=== PATIENT | female | born 1980 | race Caucasian/White ===

== ENCOUNTER 2016-07-06 22:01 | Emergency (ER) | payer OTHER ==
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
[2016-07-07 00:21] VITALS: BP 133/75
[2016-07-07] MEDS ORDERED: LIDOCAINE HCL 20 ML VIAL ONE (01:09)
[2016-07-07] MEDS ORDERED: DIPHTH,PERTUSS(ACELL),TET VAC 0.5 ML VIAL IM ONE ×2 (01:46→01:49)
== END 2016-07-07 02:04 | disposition home or self-care (01) ==
LOC: ER 22:01
PROC: 0JQP0ZZ Repair Left Lower Leg Subcutaneous Tissue and Fascia, Open Approach (ICD-10-PCS; principal; 2016-07-06)
DX: S81.812A Laceration without foreign body, left lower leg, initial encounter (principal); W22.8XXA Striking against or struck by other objects, initial encounter; Z23 Encounter for immunization; E11.9 Type 2 diabetes mellitus without complications; Z79.4 Long term (current) use of insulin; F32.9 Major depressive disorder, single episode, unspecified; I10 Essential (primary) hypertension

== ENCOUNTER 2016-11-30 01:24 | Emergency (ER) | payer OTHER ==
[2016-11-30] MEDS ORDERED: ACETAMINOPHEN 500 MG TABLET PO ONE (01:56)
[2016-11-30] MEDS ORDERED: LIDOCAINE HCL 20 ML VIAL ONE (01:58)
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
[2016-11-30 04:28] VITALS: BP 117/70
== END 2016-11-30 02:42 | disposition home or self-care (01) ==
LOC: ER 01:24
PROC: 08QNXZZ Repair Right Upper Eyelid, External Approach (ICD-10-PCS; principal; 2016-11-30)
DX: S01.111A Laceration without foreign body of right eyelid and periocular area, initial encounter (principal); W01.190A Fall on same level from slipping, tripping and stumbling with subsequent striking against furniture, initial encounter; Y93.9 Activity, unspecified; Y92.009 Unspecified place in unspecified non-institutional (private) residence as the place of occurrence of the external cause

== ENCOUNTER 2017-01-30 23:42 | Observation (INO) | payer OTHER ==
[2017-01-31] MEDS ORDERED: ASPIRIN 81 MG TAB.CHEW PO ONE (00:04)
[2017-01-31] MEDS ORDERED: ASPIRIN 81 MG TAB.CHEW ONE (00:05)
[2017-01-31] MEDS: NITROGLYCERIN 0.4 MG/TAB BTL SL PRN ×3 (00:08→00:18)
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
[2017-01-31 00:18] LABS: Hemoglobin 11.7 gm/dL (12.5-16.0); Mean Cell Volume 75.2 fl (78-100); Mean Corpuscular Hemoglobin 23.8 pg (27-31); Mean Corpuscular Hgb Conc 31.6 g/dl (32-36); Mean Platelet Volume 9.9 fl (6.0-9.5); Neutrophil # 4.9 K/mm3 (1.3-6.0); Neutrophil % 58.5 % (42-75.0); Platelet Count 379 K/mm3 (150-450); Red Blood Count 4.92 M/mm3 (4.2-5.4); Red Cell Distribution Width 13.7 % (11.5-14.0); White Blood Count 8.4 K/mm3 (4.0-10.5)
[2017-01-31 00:37] LABS: ALT 32 U/L (19-67); AST 16 U/L (0-48); Albumin * 3.6 gm/dl (3.4-5.0); Alkaline Phosphatase * 86 U/L (50-170); Anion Gap 18.3 mmol/L (6.8-13.8); BUN/Creatinine Ratio 13.2 (9.0-21.6); Bilirubin, Total 0.2 mg/dL (0.0-1.1); Blood Urea Nitrogen 15 mg/dL (3-23); Ca. Corrected For Albumin 8.1 mg/dL (8.4-10.2); Calcium * 8.1 mg/dL (7.9-10.9); Chloride 101 mmol/L (97-106); Glucose * 387 mg/dL (70-110); Potassium 4.3 mmol/L (3.4-4.6); Sodium 135 mmol/L (132-142); Total Protein 7.7 gm/dL (6.2-8.2); Troponin I Less than 0.017 ng/ml (0.00-0.10)
[2017-01-31] MEDS ORDERED: MAG HYDROX/ALUMINUM HYD/SIMETH 30 ML UDC PO ONE ×2 (02:03→11:18)
[2017-01-31] MEDS ORDERED: SUCRALFATE 1 G/10 ML UDC PO ONE (02:03)
[2017-01-31] MEDS ORDERED: LIDOCAINE HCL 20 ML UDC PO ONE ×2 (02:03→11:18)
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
[2017-01-31] MEDS ORDERED: LORazepam 1 MG TABLET PO PRN (07:35)
[2017-01-31] MEDS ORDERED: DULoxetine HCL 30 MG CAPSULE.SA PO SCH (07:35)
[2017-01-31] MEDS ORDERED: PANTOPRAZOLE SODIUM 40 MG TABLET.EC PO SCH (08:00)
[2017-01-31] MEDS: INSULIN LISPRO 100 UNITS/ML VIAL SC SCH ×2 (08:41→11:22)
[2017-01-31] MEDS ORDERED: PREGABALIN 75 MG CAPSULE PO SCH (09:00)
[2017-01-31] MEDS ORDERED: INSULIN LISPRO 100 UNITS/ML VIAL SC SCH (11:00)
[2017-01-31 11:12] VITALS: BP 154/94
[2017-01-31] MEDS ORDERED: BELLADONNA ALKALOIDS/PHENOBARB 60 ML BTL PO ONE ×2 (11:18→12:30)
[2017-01-31] MEDS ORDERED: LORazepam 2 MG/ML DISP.SYRIN IV SCH (11:30)
--- NOTE | 2017-01-31 12:34 | DS ---
(1) Chest pain Problem: Acute Qualifiers: Chest pain type: unspecified Qualified Code(s): R07.9 - Chest pain, unspecified (2) Diabetes type 2, uncontrolled Problem: Chronic Qualifiers: Diabetes mellitus complication status: with ophthalmic complications Diabetes mellitus complication detail: with diabetic retinopathy Diabetic retinopathy severity: with mild nonproliferative retinopathy Diabetes mellitus macular edema: macular edema presence unspecified Diabetes mellitus half-way insulin use: with half-way use (3) Diabetic ulcer of both lower extremities Problem: Chronic (4) GERD (gastroesophageal reflux disease) Problem: Chronic (5) HTN (hypertension) Problem: Chronic Qualifiers: Hypertension type: essential hypertension Qualified Code(s): I10 - Essential (primary) hypertension Description of Stay: Date of Admission: 01/31/17 Date of Discharge: 01/31/17 Description of Stay: Patient presented to the ER with c/o left side chest pain that radiated to the left arm, with dyspnea. pain was relieved with 3 SL ntg and ASA in the ER. risk factors for CAD include HTN and poorly controlled DM. patient was admitted for cp of unknown origin. After admission, patient had several troponins that were negative, including several EKGs that showed no acute changes. Chest pain was felt to be secondary to anxiety and/or GI in nature. Patient was recommended to follow up with her GI physician and pcp. Recommended that patient have a stress test in the outpatient setting. No changes to patient's home medications. Procedures Performed: none Discharge Disposition: Home self care Disposition: Home self-care Condition: Undetermined Discharge Activity: Activity as tolerated Discharge Diet: Consistent carbs Referrals: Sima Herrera ARNP [Primary Care Provider] - Problem Oriented Discharge Instructions to Patient/Family: Chest Pain Observation Additional Patient Instructions (free text): Follow up with Dr. Herrera on 02/09/17 at 10:00am. Call your GI doctor and notify him of your admission and ask for any recommendations. Be sure to ask primary care physician about a possible outpatient stress test in the future. No changes in medications. Complete Home Medications List: Complete Home Medication List: Cyclobenzaprine HCl 10 mg PO TID PRN 02/14/16 Blood Sugar DiagnosticNicky [Accu-Chek Compact Plus Strips] 1 each MC QID 02/18 LORazepam [Ativan] 1 mg PO TID PRN 02/19/16 Zolpidem Tartrate 10 mg PO HS 03/30/16 Dexlansoprazole [Dexilant] 60 mg PO HS 07/06/16 Duloxetine HCl [Cymbalta] 90 mg PO DAILY PRN 07/06/16 Insulin Degludec [Tresiba Flextouch U-100] 90 unit SQ HS 11/30/16 Insulin Lispro [Humalog] 25 units SC AC 11/30/16 Pregabalin [Lyrica] 150 mg PO DAILY 01/31/17 Ranitidine HCl 300 mg PO HS 01/31/17 metFORMIN HCL [Glucophage] 1,000 mg PO BID 01/31/17
[2017-01-31] MEDS ORDERED: LIDOCAINE HCL 20 ML UDC PO SCH (13:00)
[2017-01-31] MEDS ORDERED: MAG HYDROX/ALUMINUM HYD/SIMETH 30 ML UDC PO SCH (13:00)
[2017-01-31] MEDS ORDERED: BELLADONNA ALKALOIDS/PHENOBARB 60 ML BTL PO SCH (13:00)
[2017-01-31] MEDS ORDERED: FAMOTIDINE 20 MG TABLET PO SCH (21:00)
[2017-01-31] MEDS ORDERED: INSULIN DEGLUDEC SQ SCH (21:00)
[2017-01-31] MEDS ORDERED: ZOLPIDEM TARTRATE 10 MG TABLET PO SCH (21:00)
== END 2017-01-31 14:00 | disposition home or self-care (01) ==
LOC: ER 23:42 → MS 01-31 02:11
PROVIDERS: ADMIT Nurse Practitioner; ATTEND Internal Medicine
DX: R07.89 Other chest pain (principal); E11.622 Type 2 diabetes mellitus with other skin ulcer; E11.65 Type 2 diabetes mellitus with hyperglycemia; L97.319 Non-pressure chronic ulcer of right ankle with unspecified severity; E78.5 Hyperlipidemia, unspecified; M79.7 Fibromyalgia; K21.9 Gastro-esophageal reflux disease without esophagitis; Z79.4 Long term (current) use of insulin; F41.8 Other specified anxiety disorders
CPT/HCPCS: 36415; 71020; 80053; 82553; 84484; 84703; 85025; 85379; 87081; 93005; 96372; 96374; 99283; G0378

== ENCOUNTER 2017-04-15 15:24 | Observation (INO) | payer OTHER ==
[2017-04-15] MEDS ORDERED: KETOROLAC TROMETHAMINE 60 MG/2 ML VIAL IM ONE ×2 (16:03→16:27)
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
[2017-04-15 16:23] LABS: Hematocrit 30.6 % (37.0-47.0); Hemoglobin 9.4 gm/dL (12.5-16.0); Mean Cell Volume 74.8 fl (78-100); Mean Corpuscular Hgb Conc 30.7 g/dl (32-36); Mean Platelet Volume 10.2 fl (6.0-9.5); Neutrophil # 5.7 K/mm3 (1.3-6.0); Neutrophil % 71.3 % (42-75.0); Platelet Count 268 K/mm3 (150-450); Red Blood Count 4.09 M/mm3 (4.2-5.4); Red Cell Distribution Width 14.8 % (11.5-14.0)
[2017-04-15 16:43] LABS: ALT 40 U/L (19-67); AST 26 U/L (0-48); Albumin * 3.2 gm/dl (3.4-5.0); Alkaline Phosphatase * 128 U/L (50-170); Anion Gap 16.8 mmol/L (6.8-13.8); BUN/Creatinine Ratio 14.3 (9.0-21.6); Bilirubin, Total 0.2 mg/dL (0.0-1.1); Blood Urea Nitrogen 14 mg/dL (3-23); Ca. Corrected For Albumin 8.1 mg/dL (8.4-10.2); Calcium * 7.8 mg/dL (7.9-10.9); Carbon Dioxide 22.4 mmol/L (24-32.6); Chloride 104 mmol/L (97-106); Potassium 4.2 mmol/L (3.4-4.6); Sodium 139 mmol/L (132-142); Total Protein 7.1 gm/dL (6.2-8.2); Troponin I Less than 0.017 ng/ml (0.00-0.10)
[2017-04-15 16:48] LABS: Glucose * 515 mg/dL (70-110)
[2017-04-15] MEDS ORDERED: INSULIN LISPRO 100 UNITS/ML VIAL SC ONE (16:51)
[2017-04-15 17:09] LABS: BNP * 600 pg/mL (5-150)
[2017-04-15] MEDS ORDERED: INSULIN LISPRO 100 UNITS/ML VIAL ONE (17:22)
[2017-04-15] MEDS ORDERED: FUROSEMIDE 10 MG/ML VIAL IV ONE (18:58)
[2017-04-15] MEDS ORDERED: FUROSEMIDE 10 MG/ML VIAL ONE (19:01)
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
[2017-04-15] MEDS ORDERED: LORazepam 1 MG TABLET PO PRN (21:13)
[2017-04-15] MEDS ORDERED: DULoxetine HCL 30 MG CAPSULE.SA PO PRN (21:13)
[2017-04-15] MEDS ORDERED: CYCLOBENZAPRINE HCL 10 MG TABLET PO PRN (21:13)
[2017-04-15] MEDS: FUROSEMIDE 10 MG/ML VIAL IV SCH (21:28)
[2017-04-15] MEDS: ACETAMINOPHEN 325 MG TABLET PO PRN (22:55)
[2017-04-16 02:53] LABS: Urine Bilirubin Negative (NEGATIVE); Urine Ketone Negative (NEGATIVE); Urine Nitrite Negative (NEGATIVE); Urine Protein Negative (NEGATIVE); Urine Urobilinogen Normal (NORMAL); Urine pH 5.5 pH (5.0-7.0)
[2017-04-16] MEDS ORDERED: hydrALAZINE HCL 20 MG/ML VIAL IV PRN (02:54)
[2017-04-16 03:02] LABS: Urine Appearance Clear; Urine Bacteria 1+; Urine Blood 5 /ul (NEGATIVE); Urine Color Pale Yellow; Urine RBC None Seen /hpf (0-5); Urine WBC None Seen /hpf (0-5)
[2017-04-16] MEDS ORDERED: hydrALAZINE HCL 20 MG/ML VIAL ONE (03:04)
[2017-04-16] MEDS: ACETAMINOPHEN 325 MG TABLET PO PRN (05:24)
[2017-04-16] MEDS: FUROSEMIDE 10 MG/ML VIAL IV SCH (05:25)
[2017-04-16 06:02] LABS: Chol/HDL Risk Ratio 4.2 mg/dL (3.3-4.4)
[2017-04-16] MEDS: INSULIN LISPRO 100 UNITS/ML VIAL SC SCH ×2 (06:57→11:50)
--- NOTE | 2017-04-16 07:29 | PN ---
Subjective - Date and Time Seen Date: 04/16/17 Time: 07:24 Subjective Narrative: patient seen today stated she was feeling much better and have shortness of breath only with exertion. She good out-pt overnight, no edema, chest pain, palpitation or cough. pt anticipate discharge home and follow up for out-pt Echo. Plan of care discussed with pt she verbalized understanding and agrees. Objective - Review of Systems Generalized/Overall Review: Reports: No Symptoms Reported EENTM: Reports: No Symptoms Reported Respiratory: Reports: Shortness of Breath Cardiac: Reports: No Symptoms Reported Abdominal: Reports: No Symptoms Reported Genitourinary Symptoms: Reports: No Symptoms Reported Musculoskeletal Complaints: Reports: No Symptoms Reported Neurological: Reports: No Symptoms Reported Skin: Reports: No Symptoms Reported Endocrine: Reports: No Symptoms Reported - Vitals Vitals: Last Vital Signs Temp 37 C 04/16/17 06:40 Pulse 90 04/16/17 06:40 Resp 18 04/16/17 06:40 BP 151/88 04/16/17 06:40 Pulse Ox 98 04/16/17 06:40 - Abnormal Lab Findings Abnormal Lab Findings: Abnormal Lab Results 04/16/17 04/16/17 Range/Units 02:45 05:10 B-Natriuretic Peptide 596 H (5-150) pg/mL Urine Glucose (UA) >=1000 H (NEGATIVE) mg/dL Urine Blood 5 H (NEGATIVE) /ul Urine Bacteria 1+ H (NONE) - Exam Constitutional: Present: Alert, Oriented x3, Cooperative, No distress ENT Exam: Present: normal ENT inspection Neck: Present: full range of motion Breasts: Present: Exam deferred Respiratory: Present: chest non-tender, no respiratory distress, no accessory muscle use, decreased breath sounds, wheezing Cardiovascular/Chest: Present: normal peripheral pulses, regular rate, rhythm, no chest tenderness Abdomen: Present: Normal bowel sounds, soft, nontender, nondistended, no rebound tenderness /Rectal: Present: Exam deferred Extremity: Present: normal range of motion Skin Exam: Present: warm/dry Neurologic: Present: oriented x 3 Appearance: Present: appropriate appearance Eye contact: Present: cooperative Thoughts: Present: normal thought pattern Assessment/Plan Plan Narrative: Acute new onset CHF Weight 135.5kg---->132.4kg today Class II slight limitation with activities, pt reports of 15lb weight gain, fatigue and dyspnea on exertion. In ER BNP 600 likely in the presence of CHF, will trend BNP CXR: interstitial edema Troponin 0.017 D-Dimer 0.67--->CT chest negative for PE, interstitial edema and small pleural effusion. Lasix 20mg x1 given. will continue with Lasix 20mg BID Strict I/O weight daily. TSH, Lipid panel and UA pending supplemented oxygen Low sodium/ consistent carb diet with 1500ml fluid restriction. 2D- echo possible upon discharge if not done while in-pt Uncontrolled diabetes BG 154 Monitor BG AC+HS and continue with home dose of insulin Ketones negative pt may take home dose of Tresiba Anxiety and depression- stable continue with regular home regimen. Diabetic ulcers continue with follow up from the wound clinic Dressing was change before tis adm, pt have schedule dressing change for tomorrow. Hypertension BP 151/88 May resume home dose of medications Monitor vital signs GERD- stable Code status: Full GI ppx: pepcid VTE ppx: SCD and ambulate Times 15 minutes, previous records reviewed and case discussed with Dr john. - Problems/Diagnosis (1) CHF (congestive heart failure) Problem: Acute Qualifiers: Congestive heart failure type: unspecified congestive heart failure type Congestive heart failure chronicity: acute Qualified Code(s): I50.9 - Heart failure, unspecified (2) Anxiety Problem: Chronic (3) Depression Problem: Chronic (4) Diabetes type 2, uncontrolled Problem: Chronic (5) Diabetic ulcer of both lower extremities Problem: Chronic (6) GERD (gastroesophageal reflux disease) Problem: Chronic (7) HTN (hypertension) Problem: Chronic Qualifiers: Hypertension type: essential hypertension Qualified Code(s): I10 - Essential (primary) hypertension
[2017-04-16] MEDS ORDERED: FLU VACC QS2017-18(6MOS UP)/PF 60 MCG/0.5 ML SYRINGE IM ONE (09:00)
[2017-04-16] MEDS ORDERED: PREGABALIN 75 MG CAPSULE PO SCH (09:00)
[2017-04-16 11:26] VITALS: BP 158/84
--- NOTE | 2017-04-16 11:38 | DS ---
(1) Pulmonary edema Diagnosis(s): Chelsea is a 37 yo female that was admitted with shortness of breath and pulmonary edema. She was hypoxic in the ER at 88% on admission. Chest xray showed pulmonary edema and small pleural effusion. She was treated with lasix and diuresed well. She was weaned off of oxygen and had no further hypoxic events. A chest CT was performed which showed no pulmonary embolism. She was feeling well and discharged to home. She was educated on staying active, avoiding salt, and that we would set up an outpatient echocardiogram to evaluate for heart failure. She will follow up with her PCP in a week. As she is feeling well with normal vitals will discharge to home. Will have her continue on a course of daily lasix for the next week and then stop. Problem: Acute Qualifiers: Chronicity: acute Qualified Code(s): J81.0 - Acute pulmonary edema (2) Pleural effusion Problem: Acute Procedures Performed: none Discharge Disposition: Home self care Disposition: Home self-care Condition: Fair Discharge Activity: Activity as tolerated Discharge Diet: Consistent carbs, Low salt Referrals: Luzma Moyer [facility] [Primary Care Provider] - One Week Problem Oriented Discharge Instructions to Patient/Family: Pulmonary Edema, [id number] Additional Patient Instructions (free text): [facility] will call you on Tuesday with follow up appointment. Echocardiogram 04/25 at 8:00. Prescriptions (Any new or edited meds): Furosemide [Lasix] 40 mg PO DAILY #7 tablet Complete Home Medications List: Complete Home Medication List: Cyclobenzaprine HCl 10 mg PO TID PRN 02/14/16 Blood Sugar Diagnostic, Drum [Accu-Chek Compact Plus Strips] 1 each MC QID 02/18 LORazepam [Ativan] 1 mg PO TID PRN 02/19/16 Dexlansoprazole [Dexilant] 60 mg PO HS 07/06/16 Duloxetine HCl [Cymbalta] 120 mg PO DAILY PRN 07/06/16 Insulin Degludec [Tresiba Flextouch U-100] 140 unit SQ HS 11/30/16 Insulin Lispro [Humalog] 25 units SC AC 11/30/16 Pregabalin [Lyrica] 300 mg PO DAILY 01/31/17 Ranitidine HCl 300 mg PO HS 01/31/17 metFORMIN HCL [Glucophage] 1,000 mg PO BID 01/31/17 Zaleplon 10 mg PO HS 04/15/17 Furosemide [Lasix] 40 mg PO DAILY #7 tablet 04/16/17 Amb Orders for Discharge: US Echocardiogram Complete * Location: Determined By Patient US Echocardiogram Complete * Time Frame: 1 Week, Facility: [facility], Location: Radiology
[2017-04-16] MEDS ORDERED: PANTOPRAZOLE SODIUM 40 MG TABLET.EC PO SCH (21:00)
[2017-04-16] MEDS ORDERED: FAMOTIDINE 20 MG TABLET PO SCH (21:00)
[2017-04-16] MEDS ORDERED: INSULIN DEGLUDEC SQ SCH (21:00)
[2017-04-16] MEDS ORDERED: ZALEPLON 10 MG PO SCH (21:00)
== END 2017-04-16 13:33 | disposition home or self-care (01) ==
LOC: ER 15:24 → MS 19:40
PROVIDERS: ADMIT Nurse Practitioner; ATTEND Family Medicine
DX: J81.0 Acute pulmonary edema (principal); J90 Pleural effusion, not elsewhere classified; E11.65 Type 2 diabetes mellitus with hyperglycemia; E11.40 Type 2 diabetes mellitus with diabetic neuropathy, unspecified; Z79.4 Long term (current) use of insulin; F41.8 Other specified anxiety disorders; I10 Essential (primary) hypertension; K21.9 Gastro-esophageal reflux disease without esophagitis; Z23 Encounter for immunization; Z68.41 Body mass index [BMI] 40.0-44.9, adult; M79.7 Fibromyalgia
CPT/HCPCS: 36415; 71020; 71275; 80053; 80061; 81001; 82009; 83880; 84443; 84484; 85025; 85379; 87081; 87400; 87430; 90471; 90686; 93005; 96372; 96374; 96375; 96376; 99283; G0378